=== PATIENT | female | born 1995 | race Two or more races ===

== ENCOUNTER 2019-04-20 05:24 | Emergency (ER) | payer OTHER ==
[~2019-04-20] VITALS: Ht 154.9 cm; Wt 74.3 kg
[2019-04-20 05:27] VITALS: BP 98/69
== END 2019-04-20 06:47 | disposition home or self-care (01) ==
LOC: ED 06:41
DX: G56.01 Carpal tunnel syndrome, right upper limb (principal)
CPT/HCPCS: 29125; 99283